=== PATIENT | female | born 1985 | race Two or more races ===

== ENCOUNTER 2020-11-04 21:59 | Emergency (ER) | payer SELFPAY ==
[~2020-11-04] VITALS: Ht 170.2 cm; Wt 72.6 kg
[2020-11-04] MEDS ORDERED: ALBUTEROL SULFATE 2.5 MG/3 ML NEBU NEB ONE (22:15)
[2020-11-04] MEDS ORDERED: DEXAMETHASONE SOD PHOSPHATE 4 MG INJ IV ONE (22:15)
[2020-11-04] MEDS ORDERED: DEXAMETHASONE SOD PHOSPHATE 10 MG INJ ONE (22:23)
[2020-11-04] MEDS ORDERED: ALBUTEROL SULFATE 2.5 MG/3 ML NEBU ONE (22:25)
[2020-11-04 22:38] LABS: HEMATOCRIT 42.2 % (31.2-41.9); MEAN CORPUSCULAR HEMOGLOBIN 24.8 uug (24.7-32.8); MEAN CORPUSCULAR VOLUME 76.5 fL (75.5-95.3); PLATELET COUNT (AUTO) 345 K/uL (179-408)
[2020-11-04 22:41] LABS: CREATININE 0.9 mg/dL (0.6-1.3); POTASSIUM 4.1 mmol/L (3.5-5.1)
[2020-11-04 22:59] LABS: BILIRUBIN,TOTAL 0.3 mg/dL (0.2-1.0); TOTAL PROTEIN, SERUM 8.6 g/dL (6.4-8.2)
--- NOTE | 2020-11-04 23:03 | NUR ---
Patient states she is feeling better after the breathing treatment. Noted that patient RR dropped from 28 to 19 now.
--- NOTE | 2020-11-04 23:28 | NUR ---
Patient placed back on non-rebreather after nebulizer treatment, noted that patient SpO2 ranges from 95-97% on 15 LPM.
[2020-11-05] MEDS ORDERED: ALBUTEROL SULFATE 2.5 MG/3 ML NEBU NEB ONE ×2 (00:15→02:45)
[2020-11-05] MEDS ORDERED: IPRATROPIUM BROMIDE 0.5 MG/2.5 ML NEBU NEB ONE (00:15)
[2020-11-05] MEDS ORDERED: ALBUTEROL SULFATE 2.5 MG/ 0.5 ML NEBU ONE (00:27)
[2020-11-05] MEDS ORDERED: IPRATROPIUM BROMIDE 0.5 MG/2.5 ML NEBU ONE (00:30)
[2020-11-05] MEDS ORDERED: ALBUTEROL SULFATE 2.5 MG/3 ML NEBU ONE ×2 (00:30→03:00)
--- NOTE | 2020-11-05 00:32 | NUR ---
RT at bedside, starting breathing treatment.
[2020-11-05] MEDS ORDERED: BENZONATATE 100 MG CAPSULE PO ONE (02:00)
[2020-11-05] MEDS ORDERED: BENZONATATE 100 MG CAPSULE ONE (02:05)
[2020-11-05] MEDS ORDERED: CEFTRIAXONE 1 G in IV DEXTROSE 5% 50 ML IV ONE (02:45)
--- NOTE | 2020-11-05 02:45 | NUR ---
Patient is resting comfortably in bed, no acute distress noted.
[2020-11-05] MEDS ORDERED: CEFTRIAXONE /D5W 50ML IVPB **ER PYXIS IV ONE (02:55)
[2020-11-05] MEDS: levoFLOXacin 750 MG/D5W 150 ML PIGGYBACK IV ONE ×2 (03:15→03:23)
--- NOTE | 2020-11-05 03:15 | NUR ---
Patient eloped from facility. ER physician notified. Patient yanked out her own IV line and pulled it out successfully, she then left the room. We asked her to wait, she continued walking away and left the emergency department.
== END 2020-11-05 03:15 | disposition left against medical advice (07) ==
LOC: ER 22:04
DX: J45.902 Unspecified asthma with status asthmaticus (principal); J44.9 Chronic obstructive pulmonary disease, unspecified; Z20.822 Contact with and (suspected) exposure to COVID-19; F17.200 Nicotine dependence, unspecified, uncomplicated; R00.0 Tachycardia, unspecified
CPT/HCPCS: 36415; 71045; 80053; 82550; 82728; 83605; 83615; 84484; 84702; 85025; 85379; 85730; 86140; 87040 ×2; 87426; 93005; 94640 ×2; 96365; 96375; 99291; J0696; J1100; U0003; 70030-TC; J3590